=== PATIENT | male | born 1950 | race Caucasian/White ===

== ENCOUNTER 2020-09-23 10:34 | Day surgery (SDC) | payer MEDICARE, OTHER ==
[~2020-09-23] VITALS: Ht 167.7 cm; Wt 73.0 kg
[2020-09-23] VITALS (10 sets, daily range): BP systolic 117–152; BP diastolic 71–91; PULSE 71–107; TEMP 97.8–98.5
[2020-09-23] MEDS ORDERED: PAMELOR50 MG PO (11:22)
[2020-09-23] MEDS ORDERED: ASPIRIN E.C. 8181 MG PO (11:22)
[2020-09-23] MEDS ORDERED: LIPITOR 40MG TA40 MG PO ×2 (11:22→11:23)
[2020-09-23] MEDS ORDERED: JARDIANCE25 (11:23)
[2020-09-23] MEDS ORDERED: ZESTRIL40 MG PO (11:24)
[2020-09-23] MEDS ORDERED: BYDUREON B2 MG/0.85 (11:24)
[2020-09-23] MEDS ORDERED: HYTRIN 5MG C5 MG/CAP PO (11:25)
[2020-09-23] MEDS ORDERED: PLENDIL10 MG PO (11:26)
[2020-09-23] MEDS ORDERED: GLUCOSAMINE SU500 M2 PO (11:27)
[2020-09-23] MEDS ORDERED: OMEGA-31 SGL (11:28)
[2020-09-23] MEDS ORDERED: MELATONIN5 M1 (11:29)
[2020-09-23 11:34] LABS: HEMATOCRIT 43.3 % (42.0-52.0); HEMOGLOBIN 13.9 g/dl (13.5-18.0); MEAN CELL VOLUME 93 fl (80.0-100.0); MEAN CORPUSCULAR HEMOGLOBIN 30 pg (27.0-31.0); MEAN CORPUSCULAR HGB CONC 32 g/dl (33.0-37.0); MEAN PLATELET VOLUME 10.4 fl (7.4-10.4); PLATELET COUNT 235 K/mm3 (130-400); RED BLOOD COUNT 4.64 M/mm3 (4.20-5.60); REDCELL DISTRIBUTION WIDTH-CV 13.2 % (11.5-14.5)
[2020-09-23 11:38] LABS: INR 0.9 (0.8-3.0); PROTHROMBIN TIME 10.1 SECONDS (9.7-12.8)
[2020-09-23 11:41] LABS: PARTIAL THROMBOPLASTIN TIME 27.8 SECONDS (26.0-37.0)
[2020-09-23 11:51] LABS: CALCIUM 9.1 mg/dL (8.4-10.2); CREATININE, serum 1.27 (0.66-1.25); POTASSIUM 3.9 mmol/L (3.4-5.0)
--- NOTE | 2020-09-23 14:05 | NUR ---
Pt arrived to floor at this time via bed with Hand Surgeon nurse. Pt is alert and oriented, resting in bed with HOB at 0 degrees. Ice water provided and caleld for meal. Pt agreeable to staying flat until appropriate time. R radial site is CDI with radial compression band on. R femoral access site is CDI and covered with angioseal. Peripheral pulses are strong. Denies needs, will continue to monitor.
--- NOTE | 2020-09-23 19:26 | NUR ---
Pt has done well over shift since arriving to floor, eating and drinking well, up ad adolph, resting in bed between disturbances .RW site is sore but minimal bruising and no bleeding. R groin is CDI, no issues. Report given to nightshift nurse who will resume care.
--- NOTE | 2020-09-23 20:30 | NUR ---
Initial shift assessment done-- VSS, Tele on, denies pain, states right radial site is tender but denies need for some tylenol,, right femoral site clean/dry and intact, site soft/no drainage- no hematoma. right radial site with no drai nage/bandaid to site-some bruising, soft, no hematoma. HS snack given-
[2020-09-24 00:18] VITALS: BP 162/85; PULSE 65; TEMP 98.5
--- NOTE | 2020-09-24 00:38 | NUR ---
Tylenol given at this time- states cant sleep and right radial site is still sore,right femoral site soft, no drainage, dressing dry and intact, right wrist site has some bruising, soft, bandaid intact-no drainage
[2020-09-24 03:58] VITALS: BP 153/82; PULSE 72; TEMP 98.3
--- NOTE | 2020-09-24 06:36 | NUR ---
Quiet night- VSS,, Took short walk in the [place] this morning- right groin/right radial sites with no drainage , no hematoma, soft.
[2020-09-24] MEDS ORDERED: BRILINTA90 MG PO (08:19)
--- NOTE | 2020-09-24 10:19 | NUR ---
Pt alert and oriented. Pt had right radial heart cath site and right femoral cath insertion site. Right radial had small bruising noted, tender, no bleeding noted. Right femoral was soft, no bruising or bleeding noted. Pt's lungs clear, bowel sounds audible in all quadrants.
--- NOTE | 2020-09-24 10:22 | NUR ---
Pt left approximately 0930. Pt assessment completed and medications administered. Pt education provided prior to discharge. IV removed and tele-monitor discontinued.
== END 2020-09-24 09:30 | disposition home or self-care (01) ==
LOC: COL.CAR 10:34 → MEDICAL 14:46 → COL.CAR 09-24 09:30
PROVIDERS: Internal Medicine Cardiovascular Disease
DX: I25.119 Atherosclerotic heart disease of native coronary artery with unspecified angina pectoris (principal); I10 Essential (primary) hypertension; E78.5 Hyperlipidemia, unspecified; F17.210 Nicotine dependence, cigarettes, uncomplicated; E11.9 Type 2 diabetes mellitus without complications; M17.0 Bilateral primary osteoarthritis of knee; Z20.822 Contact with and (suspected) exposure to COVID-19; Z79.84 Long term (current) use of oral hypoglycemic drugs; Z79.82 Long term (current) use of aspirin; Z79.899 Other long term (current) drug therapy; Z85.820 Personal history of malignant melanoma of skin
CPT/HCPCS: OP; C1725; C1760; C1769; C1874; C1887; C1894; C9600; J1644; J1815; J2250; J3010; J7030; Q9967